=== PATIENT | female | born 1995 | race Hispanic/Latino ===

== ENCOUNTER 2022-01-10 22:58 | Emergency (ER) | payer MEDICAID, OTHER ==
[~2022-01-10] VITALS: Ht 167.6 cm; Wt 102.5 kg
[~2022-01-10 22:58] MED LIST: IBUP-2071 PO
[2022-01-10] MEDS ORDERED: LIDOCAINE HCL 2% VISCOUS 15 ML UDCUP PO ONE (23:30)
[2022-01-10] MEDS ORDERED: FAMOTIDINE 20MG TAB PO ONE (23:30)
[2022-01-10] MEDS ORDERED: MAG/ALUM/SIMETH 30 ML UDCUP PO ONE (23:30)
[2022-01-10] MEDS ORDERED: DICYCLOMINE HCL 10 MG/5 ML ML PO ONE (23:30)
[2022-01-10 23:32] LABS: BASOPHILS % (AUTO) 0.2 % (0.0-5.0); EOSINOPHILS % (AUTO) 1.5 % (0.0-8.0); HEMATOCRIT 41.3 % (36-48); LYMPHOCYTES % (AUTO) 13.7 % (21.0-51.0); MEAN CORPUSCULAR HEMOGLOBIN 28.3 pg (27.0-33.0); MEAN CORPUSCULAR HGB CONC 33.2 g/dL (32.0-36.0); MEAN CORPUSCULAR VOLUME 85.3 fL (79-99); MONOCYTES % (AUTO) 4.8 % (3.0-13.0); NEUTROPHILS % (AUTO) 79.5 % (40.0-77.0); PLATELET COUNT (AUTO) 254 K/uL (130-400); RED BLOOD CELL COUNT(AUTO) 4.84 MIL/uL (4.00-5.50); WHITE BLOOD COUNT (AUTO) 15.5 K/uL (4.8-10.8)
[2022-01-10 23:33] LABS: APPEARANCE,URINE CLEAR (CLEAR); BILIRUBIN,URINE SMALL mg/dL (NEGATIVE); COLOR,URINE YELLOW (YELLOW); GLUCOSE, URINE (UA) NEGATIVE (NEGATIVE); KETONES,URINE 5 mg/dL (NEGATIVE); LEUKOCYTE ESTERASE ,URINE SMALL Leu/uL (NEGATIVE); NITRATE,URINE NEGATIVE (NEGATIVE); OCCULT BLOOD,URINE NEGATIVE (NEGATIVE); PROTEIN,URINE 30 mg/dL (NEGATIVE); UROBILINOGEN,URINE 0.2 mg/dL (0.2-1.0)
[2022-01-10 23:36] LABS: RBC,URINE 0-1 /HPF (0-1)
[2022-01-10 23:37] LABS: BACTERIA,URINE Few /HPF (None Seen)
[2022-01-10 23:45] LABS: CREATININE 0.7 mg/dL (0.5-1.5); POTASSIUM 3.6 mmol/L (3.5-5.1)
[2022-01-10 23:49] LABS: TOTAL PROTEIN, SERUM 8.3 g/dL (6.0-8.3)
[2022-01-11] MEDS ORDERED: OMEP20TA2 PO (01:13)
[2022-01-11 02:00] VITALS: BP 128/82
== END 2022-01-11 02:13 | disposition home or self-care (01) ==
LOC: EDH 22:58
DX: R10.9 Unspecified abdominal pain (principal); R19.7 Diarrhea, unspecified
CPT/HCPCS: 36415; 74176; 80053; 81001; 83690; 84703; 85025